=== PATIENT | male | born 1980 | race Caucasian/White ===

== ENCOUNTER 2016-11-15 13:30 | Inpatient (IN) | payer OTHER ==
[~2016-11-15] VITALS: Ht 165.1 cm; Wt 197.1 kg
[~2016-11-15 13:30] MED LIST: ETOMIDATE 2MG/ML 10ML VIAL IV ONE; SUCCINYLCHOLINE CHLORIDE 200MG/10ML VIAL IV ONE
[2016-11-15] MEDS ORDERED: METHYLPREDNISOLONE SOD SUCC 125 MG/2 ML VIAL IV STA (14:17)
[2016-11-15] MEDS ORDERED: IPRATROPIUM BROMIDE (0.02%) 0.5MG/2.5ML NEB HHN STA (14:17)
[2016-11-15] MEDS ORDERED: ALBUTEROL (0.083%) 2.5MG/3ML NEB HHN SCH (14:30)
[2016-11-15 14:34] LABS: HEMATOCRIT. 33.8 % (42.0-52.0); HEMOGLOBIN. 10.4 g/dL (14.0-18.0); LYMPHOCYTES % 7.2 % (20.0-50.0); MEAN CORPUSCULAR HEMOGLOBIN 23.5 pg (28.0-32.0); MEAN CORPUSCULAR VOLUME 76.2 fL (80.0-94.0); MEAN PLATELET VOLUME 7.9 fl (7.4-10.4); MONOCYTES % 6.1 % (2.0-8.0); NEUTROPHILS % 86.7 % (40.0-76.0); PLATELET 325 x1000/uL (130-400); RED BLOOD CELL COUNT 4.44 mill/uL (4.7-6.1); RED CELL DISTRIBUTION WIDTH 17.9 % (11.6-14.6)
[2016-11-15 14:41] LABS: INR 1.3; PROTHROMBIN TIME 13.8 sec
[2016-11-15 14:52] LABS: CARBON DIOXIDE 32 mEq/L (21-32); CHLORIDE 100 mEq/L (98-107); TROPONIN I 0.23 ng/mL (0.00-0.04)
[2016-11-15 16:09] LABS: BG BASE EXCESS 5.7 mmol/L (-2.0-2.0); BG BILEVEL POS AIRWAY PRESSURE 15/5; BG CARBOXYHEMOGLOBIN 0.5 % (0.5-1.5); BG HCO3 ACT 36.9 mmol/L (22.0-26.0); BG METHEMOGLOBIN 0.4 % (0.0-1.5); BG OXYHEMOGLOBIN 98.1 % (94.0-97.0); BG PCO2 98.9 mmHg (35.0-45.0); BG PO2 192.7 mmHg (75.0-100.0); BG SAMPLE SITE RIGHT RADIAL; BG TOTAL HEMOGLOBIN 12.2 g/dL (12.0-18.0); BG VENT MODE MASK - BIPAP; BG VENT RATE 36 set
[2016-11-15] MEDS ORDERED: PROPOFOL 10MG/ML 100ML 100 ML IV ONE (16:39)
[2016-11-15] MEDS ORDERED: PROPOFOL 200MG/20ML VIAL IV ONE (16:45)
[2016-11-15] MEDS ORDERED: PROPOFOL 10MG/ML 100ML 100 ML IV SCH (16:45)
[2016-11-15] MEDS ORDERED: ETOMIDATE 2MG/ML 10ML VIAL IV ONE (16:45)
[2016-11-15] MEDS ORDERED: SUCCINYLCHOLINE CHLORIDE 200MG/10ML VIAL IV ONE (16:45)
[2016-11-15] MEDS ORDERED: MIDAZOLAM HCL 50 MG in DEXTROSE 5% WATER 40 ML IV ONE (17:15)
[2016-11-15] MEDS ORDERED: MIDAZOLAM HCL 50 MG in DEXTROSE 5% WATER 40 ML IV NR (17:30)
[2016-11-15 18:26] LABS: BG BASE EXCESS 5.3 mmol/L (-2.0-2.0); BG CARBOXYHEMOGLOBIN 0.5 % (0.5-1.5); BG DEOXYHEMOGLOBIN 0.1 % (0.0-5.0); BG HCO3 ACT 30.9 mmol/L (22.0-26.0); BG METHEMOGLOBIN 0.5 % (0.0-1.5); BG OXYGEN SATURATION 99.9 % (92.0-98.5); BG OXYHEMOGLOBIN 98.9 % (94.0-97.0); BG PCO2 49.8 mmHg (35.0-45.0); BG PH 7.411 (7.350-7.450); BG PO2 581.8 mmHg (75.0-100.0); BG SAMPLE SITE RIGHT RADIAL; BG TIDAL VOLUME(mL) 700 mL; BG TOTAL HEMOGLOBIN 11.8 g/dL (12.0-18.0); BG VENT MODE VENT - A/C; BG VENT RATE 16 set
[2016-11-15] MEDS ORDERED: FUROSEMIDE 100MG/10ML VIAL IVP ONE (18:30)
[2016-11-15] MEDS ORDERED: ASPIRIN 600MG SUPP PR ONE (18:30)
[2016-11-15] MEDS ORDERED: IPRATROPIUM/ALBUTEROL 0.5-3(2.5)MG/3ML NEB INH PRN (23:30)
[2016-11-15] MEDS ORDERED: GUAIFENESIN 200MG/10ML SUGAR FREE UDC PO PRN (23:30)
[2016-11-15] MEDS ORDERED: HYDROMORPHONE HCL/PF 2MG/ML CPJ IV PRN (23:30)
[2016-11-15] MEDS ORDERED: HYDROCODONE/ACETAMINOPHEN 5/325MG TABLET PO PRN (23:30)
[2016-11-15] MEDS ORDERED: ENOXAPARIN 40MG/0.4ML SYR SUBCUT SCH (23:30)
[2016-11-15] MEDS ORDERED: NA PHOS,M-B/NA PHOS,DI-BA ENEMA 118ML PR PRN (23:30)
[2016-11-15] MEDS ORDERED: DIPHENHYDRAMINE 50MG/ML VIAL IV PRN (23:30)
[2016-11-15] MEDS ORDERED: MAGNESIUM/ALUMINUM HYDROXIDE/SIMETHICONE 30ML UDC PO PRN (23:30)
[2016-11-15] MEDS ORDERED: LORAZEPAM 2MG/ML CPJ IV PRN (23:30)
[2016-11-15] MEDS ORDERED: DOCUSATE SODIUM 100MG CAPSULE PO PRN (23:30)
[2016-11-15] MEDS ORDERED: ONDANSETRON HCL 4MG/2ML VIAL IV PRN (23:30)
[2016-11-16] MEDS ORDERED: IPRATROPIUM/ALBUTEROL 0.5-3(2.5)MG/3ML NEB HHN PRN (00:15)
[2016-11-16] MEDS: DEXT 5%/0.45% NACL 1000ML 1,000 ML IV SCH (01:11)
[2016-11-16] MEDS: ENOXAPARIN 40MG/0.4ML SYR SUBCUT SCH ×2 (01:11→15:18)
[2016-11-16] MEDS: METHYLPREDNISOLONE SOD SUCC 125 MG/2 ML VIAL IV SCH ×2 (01:12→05:57)
[2016-11-16] MEDS ORDERED: LEVOFLOXACIN 500MG PREMIX 100 ML IV SCH (02:00)
[2016-11-16] MEDS ORDERED: MIDAZOLAM HCL 50 MG in DEXTROSE 5% WATER 40 ML IV PRN (04:45)
[2016-11-16 05:24] LABS: HEMATOCRIT. 31.9 % (42.0-52.0); HEMOGLOBIN. 9.7 g/dL (14.0-18.0); MEAN CORPUSCULAR HEMOGLOBIN 22.7 pg (28.0-32.0); MEAN CORPUSCULAR VOLUME 74.4 fL (80.0-94.0); MEAN PLATELET VOLUME 8.5 fl (7.4-10.4); PLATELET 310 x1000/uL (130-400); RED BLOOD CELL COUNT 4.28 mill/uL (4.7-6.1); RED CELL DISTRIBUTION WIDTH 18.4 % (11.6-14.6)
[2016-11-16 06:00] LABS: CARBON DIOXIDE 35 mEq/L (21-32); CHLORIDE 97 mEq/L (98-107); LDL CHOLESTEROL 39 mg/dL (5-100); T4 FREE 1.16 ng/dL (0.76-1.46)
[2016-11-16 06:05] LABS: HDL CHOLESTEROL 27 mg/dL (40-59)
[2016-11-16] MEDS ORDERED: MORPHINE SULFATE 4 MG/ML CPJ (NOT FOR IM USE) IV PRN (07:15)
[2016-11-16] MEDS ORDERED: LIDOCAINE HCL 2% JELLY 5ML TOP SCH (08:00)
[2016-11-16] MEDS: BUDESONIDE 0.5MG/2ML NEB HHN SCH ×2 (08:04→20:06)
[2016-11-16] MEDS: IPRATROPIUM/ALBUTEROL 0.5-3(2.5)MG/3ML NEB HHN SCH ×3 (08:04→20:06)
[2016-11-16 08:18] LABS: BG BASE EXCESS 11.8 mmol/L (-2.0-2.0); BG CARBOXYHEMOGLOBIN 0.3 % (0.5-1.5); BG DEOXYHEMOGLOBIN 1.5 % (0.0-5.0); BG HCO3 ACT 38.2 mmol/L (22.0-26.0); BG METHEMOGLOBIN 0.2 % (0.0-1.5); BG OXYGEN SATURATION 98.5 % (92.0-98.5); BG PCO2 59.8 mmHg (35.0-45.0); BG PH 7.423 (7.350-7.450); BG PO2 134.2 mmHg (75.0-100.0); BG SAMPLE SITE RIGHT RADIAL; BG TIDAL VOLUME(mL) 600 mL; BG TOTAL HEMOGLOBIN 11.1 g/dL (12.0-18.0); BG VENT MODE VENT - A/C; BG VENT RATE 16 set
[2016-11-16] MEDS: FUROSEMIDE 40MG/4ML VIAL IV SCH (09:04)
[2016-11-16] MEDS: PANTOPRAZOLE SODIUM 40 MG/VIAL IV SCH (09:04)
[2016-11-16] MEDS: ACETAMINOPHEN 325MG TABLET PO PRN (10:35)
[2016-11-16] MEDS: ASPIRIN 81MG EC TABLET PO SCH (10:36)
[2016-11-16 11:02] LABS: CLARITY URINE CLEAR (CLEAR); COLOR URINE YELLOW (YELLOW); KETONES URINE NEGATIVE (NEGATIVE); LEUKOCYTE ESTERASE URINE NEGATIVE (NEGATIVE); NITRITE URINE NEGATIVE (NEGATIVE); OCCULT BLOOD URINE TRACE (NEGATIVE); PH URINE 6.5 (4.5-8.0); PROTEIN URINE NEGATIVE (NEGATIVE); SPECIFIC GRAVITY URINE 1.008 (1.005-1.030); UROBILINOGEN URINE 0.2 E.U./dL (0.2-1.0)
[2016-11-16 11:16] LABS: *AMPHETAMINES SCREEN URINE NEGATIVE (NEGATIVE); *BARBITURATES SCREEN URINE NEGATIVE (NEGATIVE); *BENZODIAZEPINES SCREEN URINE PRESUMTIVE POSITIVE (NEGATIVE); *COCAINE SCREEN URINE NEGATIVE (NEGATIVE); CANNABINOID URINE SCREEN NEGATIVE (NEGATIVE); METHADONE URINE SCREEN NEGATIVE (NEGATIVE); PHENCYCLIDINE URINE SCREEN NEGATIVE (NEGATIVE)
[2016-11-16 11:42] LABS: OPIATES URINE SCREEN NEGATIVE (NEGATIVE)
[2016-11-16] MEDS: CEFEPIME 1,000 MG in DEXTROSE 5% WATER 50 ML IV SCH ×2 (12:06→22:13)
[2016-11-16 13:08] LABS: PLATELET ESTIMATE NORMAL
[2016-11-16] MEDS: MIDAZOLAM HCL 100 MG in DEXT 5% WATER 80 ML IV PRN (14:32)
[2016-11-16] MEDS: METHYLPREDNISOLONE SOD SUCC 40 MG/ML VIAL IV SCH ×2 (15:18→22:13)
[2016-11-16 16:50] LABS: CREATINE KINASE MB FRACTION 1.5 ng/mL (0.5-3.6)
[2016-11-17] MEDS: DEXT 5%/0.45% NACL 1000ML 1,000 ML IV SCH (00:30)
[2016-11-17] MEDS: ENOXAPARIN 40MG/0.4ML SYR SUBCUT SCH ×2 (00:31→13:24)
[2016-11-17 01:34] LABS: CREATINE KINASE MB FRACTION 0.7 ng/mL (0.5-3.6); TROPONIN I 0.11 ng/mL (0.00-0.04)
[2016-11-17] MEDS: IPRATROPIUM/ALBUTEROL 0.5-3(2.5)MG/3ML NEB HHN SCH ×4 (01:59→20:36)
[2016-11-17] MEDS: CLONIDINE 0.1MG TABLET PO PRN ×2 (02:55→08:37)
[2016-11-17 05:01] LABS: HEMATOCRIT. 31.3 % (42.0-52.0); HEMOGLOBIN. 9.5 g/dL (14.0-18.0); MEAN CORPUSCULAR HEMOGLOBIN 22.7 pg (28.0-32.0); MEAN CORPUSCULAR VOLUME 74.8 fL (80.0-94.0); MEAN PLATELET VOLUME 8.4 fl (7.4-10.4); PLATELET 289 x1000/uL (130-400); RED BLOOD CELL COUNT 4.19 mill/uL (4.7-6.1); RED CELL DISTRIBUTION WIDTH 17.9 % (11.6-14.6)
[2016-11-17 05:25] LABS: CHLORIDE 98 mEq/L (98-107); CREATINE KINASE 157 IU/L (39-308); CREATINE KINASE MB FRACTION 0.9 ng/mL (0.5-3.6)
[2016-11-17] MEDS: METHYLPREDNISOLONE SOD SUCC 40 MG/ML VIAL IV SCH ×2 (05:34→13:22)
[2016-11-17 05:53] LABS: CARBON DIOXIDE 40 mEq/L (21-32)
[2016-11-17] MEDS: MIDAZOLAM HCL 100 MG in DEXT 5% WATER 80 ML IV PRN (07:00)
[2016-11-17 07:08] LABS: PLATELET ESTIMATE NORMAL
[2016-11-17 07:34] LABS: BG BASE EXCESS 7.8 mmol/L (-2.0-2.0); BG CARBOXYHEMOGLOBIN 0.6 % (0.5-1.5); BG DEOXYHEMOGLOBIN 1.4 % (0.0-5.0); BG FRACTION INSPIRED OXYGEN 50; BG HCO3 ACT 34.4 mmol/L (22.0-26.0); BG METHEMOGLOBIN 0.4 % (0.0-1.5); BG OXYGEN SATURATION 98.6 % (92.0-98.5); BG OXYHEMOGLOBIN 97.6 % (94.0-97.0); BG PCO2 59.4 mmHg (35.0-45.0); BG PH 7.381 (7.350-7.450); BG PO2 139.2 mmHg (75.0-100.0); BG SAMPLE SITE RIGHT RADIAL; BG TIDAL VOLUME(mL) 600 mL; BG VENT MODE VENT - A/C; BG VENT RATE 14 set
[2016-11-17] MEDS: BUDESONIDE 0.5MG/2ML NEB HHN SCH ×2 (08:17→20:37)
[2016-11-17] MEDS: ACETAMINOPHEN 325MG TABLET PO PRN (08:36)
[2016-11-17] MEDS: ASPIRIN 81MG EC TABLET PO SCH (08:37)
[2016-11-17] MEDS: FUROSEMIDE 40MG/4ML VIAL IV SCH (08:37)
[2016-11-17] MEDS: PANTOPRAZOLE SODIUM 40 MG/VIAL IV SCH (08:37)
[2016-11-17] MEDS ORDERED: BISACODYL 5MG TABLET PO PRN (11:15)
[2016-11-17] MEDS ORDERED: AMLODIPINE 5MG TABLET GT NR (11:15)
[2016-11-17] MEDS ORDERED: LOSARTAN POTASSIUM 50 MG TABLET PO NR (11:15)
[2016-11-17] MEDS: CEFEPIME 1,000 MG in DEXTROSE 5% WATER 50 ML IV SCH (11:33)
[2016-11-17] MEDS: CARVEDILOL 6.25 MG TABLET PO SCH ×2 (13:22→20:49)
[2016-11-17] MEDS: HYDRALAZINE HCL 50MG TABLET PO SCH ×2 (13:22→20:49)
[2016-11-17] MEDS ORDERED: AMLODIPINE 5MG TABLET GT SCH (21:00)
[2016-11-17 21:04] VITALS: BP 120/62
[2016-11-17] MEDS ORDERED: ENOXAPARIN 150MG/ML SYR SUBCUT SCH (22:00)
[2016-11-18] MEDS ORDERED: LOSARTAN POTASSIUM 50 MG TABLET NG SCH (09:00)
== END 2016-11-17 21:05 | disposition short-term general hospital (02) | DRG 208 ==
LOC: ER 14:31 → MICUNO 16:54 → EDBEDREQ 18:11 → ENRESERV 22:08
PROVIDERS: ADMIT Internal Medicine; ATTEND Internal Medicine
PROC: 0BH17EZ Insertion of Endotracheal Airway into Trachea, Via Natural or Artificial Opening (ICD-10-PCS; principal; 2016-11-15)
PROC: 5A1945Z Respiratory Ventilation, 24-96 Consecutive Hours (ICD-10-PCS; 2016-11-15)
PROC: 05H533Z Insertion of Infusion Device into Right Subclavian Vein, Percutaneous Approach (ICD-10-PCS; 2016-11-16)
PROC: B546ZZA Ultrasonography of Right Subclavian Vein, Guidance (ICD-10-PCS; 2016-11-16)
DX: J96.02 Acute respiratory failure with hypercapnia (principal); J69.0 Pneumonitis due to inhalation of food and vomit; G93.40 Encephalopathy, unspecified; R65.10 Systemic inflammatory response syndrome (SIRS) of non-infectious origin without acute organ dysfunction; I42.9 Cardiomyopathy, unspecified; Z68.45 Body mass index [BMI] 70 or greater, adult; D64.9 Anemia, unspecified; E66.01 Morbid (severe) obesity due to excess calories; E87.70 Fluid overload, unspecified; F17.210 Nicotine dependence, cigarettes, uncomplicated; G47.33 Obstructive sleep apnea (adult) (pediatric); I51.7 Cardiomegaly; J45.909 Unspecified asthma, uncomplicated; R79.89 Other specified abnormal findings of blood chemistry
CPT/HCPCS: 31500; 31525; 36415; 36569; 36600; 51702; 71010; 76937; 78580; 80048; 80053; 80061; 80305; 81001; 82375; 82550; 82553; 82805; 83036; 83880; 84439; 84443; 84484; 85025; 85379; 85610; 87040; 87070; 93005; 93306; 93970; 94002; 94003; 94640; 94660; 96374; 99152; 99291; C1725; C9113; J0330; J0692; J1650; J1940; J1956; J2250; J2704; J2920; J2930; J3490; J7030; J7040; J7060; J7611; J7620; J7626; A4315

== ENCOUNTER 2021-05-13 09:50 | Emergency (ER) | payer MEDICAID, OTHER ==
[~2021-05-13] VITALS: Ht 167.6 cm; Wt 200.0 kg
[2021-05-13 10:15] VITALS: BP 215/127
[2021-05-13] MEDS ORDERED: HYDR12.54 MT (10:42)
[2021-05-13] MEDS ORDERED: AMLO5TAB88 MT (10:47)
== END 2021-05-13 12:29 | disposition home or self-care (01) ==
LOC: ER 09:50
DX: R04.0 Epistaxis (principal); I10 Essential (primary) hypertension; G47.30 Sleep apnea, unspecified; E66.01 Morbid (severe) obesity due to excess calories; Z68.45 Body mass index [BMI] 70 or greater, adult; Z79.82 Long term (current) use of aspirin
CPT/HCPCS: 99283